=== PATIENT | male | born 1935 | race Caucasian/White ===

== ENCOUNTER 2017-04-18 18:36 | Observation (INO) | payer OTHER ==
[~2017-04-18] VITALS: Ht 177.8 cm; Wt 65.4 kg
[~2017-04-18 18:36] MED LIST: CARDIZEM CD,CA240 MG PO; CARDIZEM60 MG PO; XARELTO20 MG PO
[2017-04-18 20:06] LABS: HEMATOCRIT 48.7 % (38.0-50.0); HEMOGLOBIN 16.8 G/DL (12.5-16.6); MCH 33.7 PG (29.0-34.0); MCHC 34.5 G/DL (30.0-36.0); MCV 97.8 FL (86-99); PLATELET COUNT 169 K/uL (156-360); RBC DIS.WIDTH-CV 12.5 % (11.8-14.6); RBC DIS.WIDTH-SD 44.6 % (39-53); RED BLOOD COUNT 4.98 M/uL (4.00-5.50); WHITE BLOOD COUNT 9.6 K/uL (4.1-10.2)
[2017-04-18 20:19] LABS: CHLORIDE 106 mEq/L (99-109); POTASSIUM 4.3 mEq/L (3.7-5.4); SODIUM 140 mEq/L (136-147)
[2017-04-18 20:20] LABS: GLUCOSE 111 mg/dL (70-99)
[2017-04-18 20:24] LABS: CREATININE 1.5 mg/dL (0.6-1.3); GFR ESTIMATE (CALCULATED) 48 mL/min/ (58.99-99999)
[2017-04-18 20:25] LABS: UREA NITROGEN (BUN) 20 mg/dL (9-23)
[2017-04-18 20:28] LABS: TROP-I INTERPRETATION NEGATIVE; TROPONIN-I < 0.01 ng/mL (0.0-0.30)
[2017-04-18] MEDS ORDERED: XARELTO20 MG PO (21:15)
[2017-04-18] MEDS ORDERED: METOPROLOL SUCC50 MG PO (21:16)
[2017-04-18 23:28] VITALS: BP 128/63
[2017-04-19 01:22] LABS: TROP-I INTERPRETATION NEGATIVE; TROPONIN-I < 0.01 ng/mL (0.0-0.30)
[2017-04-19 01:49] LABS: HDL CHOLESTEROL 50 MG/DL (Desirable>=40); LDL CHOLESTEROL 75 mg/dL (Desirable<100); NON-HDL CHOLESTEROL 84 mg/dL (Desirable<160); TOTAL CHOLESTEROL 134 mg/dL (Desirable<200); TRIGLYCERIDES 47 MG/DL (Normal: <150)
[2017-04-19 03:44] VITALS: BP 101/58
[2017-04-19 07:11] LABS: TROP-I INTERPRETATION NEGATIVE; TROPONIN-I < 0.01 ng/mL (0.0-0.30)
[2017-04-19 09:13] VITALS: BP 145/71
[2017-04-19] MEDS ORDERED: ASPIRIN81 M2 PO (10:16)
[2017-04-19] MEDS ORDERED: XARELTO20 MG PO (10:21)
== END 2017-04-19 10:37 | disposition home or self-care (01) ==
LOC: EME 18:36 → EDOF 21:02 → 5WEST 21:02 → EDOF 21:02 → ENRESERV 21:10 → 5WEST 23:19
PROVIDERS: Physician Assistant Medical
DX: R07.9 Chest pain, unspecified (principal); R00.2 Palpitations; I48.2 Chronic atrial fibrillation; I49.3 Ventricular premature depolarization; I50.22 Chronic systolic (congestive) heart failure; I35.2 Nonrheumatic aortic (valve) stenosis with insufficiency; Z79.01 Long term (current) use of anticoagulants; I77.811 Abdominal aortic ectasia; I42.9 Cardiomyopathy, unspecified; Z79.82 Long term (current) use of aspirin; Z82.5 Family history of asthma and other chronic lower respiratory diseases; Z82.49 Family history of ischemic heart disease and other diseases of the circulatory system; Z82.3 Family history of stroke; Z83.79 Family history of other diseases of the digestive system
CPT/HCPCS: 71046; 80048; 80061; 84443; 84484; 85027; 93005; 99281; 99285; G0378